=== PATIENT | female | born 1995 | race Caucasian/White ===

== ENCOUNTER 2016-10-10 08:34 | Emergency (ER) | payer OTHER ==
[~2016-10-10] VITALS: Wt 102.1 kg
[~2016-10-10 08:34] MED LIST: AMOXIL250 MG/5 M PO; BACTRIM DS 8001 TA1 PO; BIAXIN500 MG PO; CLARITIN-D 12 H1 TAB PO; CLARITIN10 MG PO; DEPO PROVER150 MG/M1 IM; IBUPROFEN600 MG PO; KEFLEX500 MG PO; MACROBID100 M1 PO; MEDROL DOSEPAK4 MG PO; MOTRIN800 MG PO; NAPROSYN500 MG PO; NKHM; NORCO 325 MG-51 TAB PO; PEN-VEE K500 MG PO; PRENATAL1 TA7 PO; ROBAXIN500 MG PO; SALINE 45 ML45 ML NAS; TYLENOL W/CODEI1 TA2 PO; VOLTAREN50 M1 PO
[2016-10-10 08:41] VITALS: BP 140/67
== END 2016-10-10 11:08 | disposition home or self-care (01) ==
LOC: ED 08:34
DX: H10.32 Unspecified acute conjunctivitis, left eye (principal)